=== PATIENT | female | born 1970 | race Two or more races ===

== ENCOUNTER → 2017-12-14 | Outpatient (CLI) | payer BC ==
--- NOTE | 2017-12-17 07:21 | MM ---
Reason for exam: additional evaluation requested from abnormal screening. Last mammogram was performed less than 1 month ago. Physical Findings: Nurse did not find any significant physical abnormalities on exam. MG 3D Work Up W/Cad NATHEN Bilateral spot compression CC, spot compression MLO, and LM view(s) were taken. Prior study comparison: December 06, 2017, mammogram. The breast tissue is heterogeneously dense. This may lower the sensitivity of mammography. Bilateral nodularity persists. These results were verbally communicated with the patient and result sheet given to the patient on 12/14/17. ASSESSMENT: Incomplete: need additional imaging evaluation, BI-RAD 0 RECOMMENDATION: Ultrasound of both breasts.
--- NOTE | 2017-12-17 07:23 | USB ---
Reason for exam: additional evaluation requested from abnormal screening. US Breast Workup Limited NATHEN Right limited breast ultrasound including focal area of concern, retroareolar and axilla demonstrates no cystic or solid lesion seen. Left limited breast ultrasound including focal area of concern, retroareolar and axilla demonstrates no cystic or solid lesion seen. These results were verbally communicated with the patient and result sheet given to the patient on 12/14/17. ASSESSMENT: Probably benign, BI-RAD 3 RECOMMENDATION: Follow-up diagnostic mammogram of both breasts in 6 months.
== END | disposition home or self-care (01) ==
LOC: RADMAMWWP 13:46
PROVIDERS: ATTEND Family Medicine
DX: R92.8 Other abnormal and inconclusive findings on diagnostic imaging of breast (principal)
CPT/HCPCS: 77062; 77066

== ENCOUNTER → 2018-09-27 | Outpatient (CLI) | payer BC ==
--- NOTE | 2018-09-30 08:39 | MM ---
Reason for exam: follow-up at short interval from prior study. Last mammogram was performed 9 months ago. Physical Findings: Nurse did not find any significant physical abnormalities on exam. MG 3D Diag Mammo W/Cad NATHEN Bilateral CC and MLO view(s) were taken. Prior study comparison: December 14, 2017, bilateral MG 3d work up w/cad NATHEN. December 06, 2017, mammogram. The breast tissue is heterogeneously dense. This may lower the sensitivity of mammography. There is a 3mm stable right upper outer quadrant mass at middle depth stable from prior. No sonographic correlate on the prior. The prior left unspecified mass is no longer seen. These results were verbally communicated with the patient and result sheet given to the patient on 09/27/18. ASSESSMENT: Probably benign, BI-RAD 3 RECOMMENDATION: Follow-up diagnostic mammogram of the right breast in 6 months.
== END | disposition home or self-care (01) ==
LOC: RADMAMWWP 15:40
PROVIDERS: ATTEND Family Medicine
DX: R92.8 Other abnormal and inconclusive findings on diagnostic imaging of breast (principal)
CPT/HCPCS: 77062; 77066

== ENCOUNTER → 2019-12-19 | Outpatient (CLI) | payer BC | END | disposition home or self-care (01) | LOC: LABWHC1 07:56 | PROVIDERS: ATTEND Family Medicine | DX: R05 Cough (principal); R50.9 Fever, unspecified; R53.81 Other malaise | CPT/HCPCS: 87635 ==